=== PATIENT | female | born 1980 | race Caucasian/White ===

== ENCOUNTER 2016-07-14 23:59 | Emergency (ER) | payer OTHER ==
--- NOTE | 2016-07-15 03:35 | ED NURSING NOTES ---
Clinical Report - Nurses [facility] [address] [place] [place] [address] 07/15/2016 0:02 Patient: CLAUDIA GREENFIELD TRIAGE Triage time 0017 AM. Acuity: LEVEL 3. Chief Complaint: NAUSEA and VOMITING. Alert. No acute distress. SEPSIS SCREEN: Sepsis Screen. Negative (no infection suspected/documented). ROSA COMA SCORE: [place] Coma Scale: 15- eyes open spontaneously (4); best verbal response- oriented x 4 (5); best motor response- obeys commands (6). --00:30 Soniya Farias R.N. 00:13 07/15/16. BP: 132/93. HR: 105. RR: 16 (regular and unlabored). O2 saturation: 99% on room air. Temp: 98.3 F (oral). Pain level now: 02/20. --00:30 Soniya Farias R.N. Weight: 51.7 kg stated. Height/Length: 66 inches Per Patient. BMI: 18.4. --00:17 Soniya Farias R.N. Medications Zofran Oral. --00:16 Soniya Farias R.N. Gabapentin Oral. --00:18 Soniya Farias R.N. Tramadol HCL Oral. --00:19 Soniya Farias R.N. Promethazine HCl Rectal. --00:54 Soniya Farias R.N. Lexapro Oral. --00:55 Soniya Farias R.N. Glucosamine Oral. --00:55 Soniya Farias R.N. Vitamin D Oral. --00:56 Soniya Farias R.N. Digestive Enzyme Oral. --00:56 Soniya Farias R.N. Medication/allergy information source: the patient. --00:30 Soniya Farias R.N. Allergies Vicodin. --00:19 Soniya Farias R.N. morphine. --00:19 Soniya Farias R.N. Ambien. --00:20 Soniya Farias R.N. anything with triptin. --00:20 Soniya Farias R.N. History Primary physician (Dr. Eason- will be switching to [facility]). ( Pt has a hx irrectratable vomiting, this episode started yesterday and has gotten worst tonight with abdominal pain, back pain left (thinks might have a UTI). Has vomited approximately 8 times today, parks like color as per patient. Also has a migrane). This started last night. Relates location as in the left side of the back, right and left pelvic area, pelvic area and suprapubic area. Notes pain level as 10/10 on arrival. Provoking / relieving factors: (heating). The patient has had fever, nausea, vomiting and abdominal pain and pain. She has had nausea, vomiting, constipation, back pain and pelvic pain. Reports muscle aches. No diarrhea, constipation, fever, diarrhea or chest pain. No bloody stools or vaginal bleeding or discharge. Last oral intake by patient was dinner (5 minutes (liquid)8 PM). Treatment STUDENT ADVISOR: (zofran, trazadone). PAST MEDICAL HX: Immunizations: up-to-date and (no flu). SOCIAL HX: Light tobacco smoker- less than 1/2 a pack per day. History of drug use: marijuana. Recently used drugs today. No alcohol use. No recent travel. No infectious disease exposure. ABUSE ASSESSMENT: No report of abuse. SELF HARM ASSESSMENT: A self harm assessment was performed. The patient answered "no" to the question "Do you have thoughts of harming or killing yourself?" and "Have you recently had thoughts about harming or killing others?". FALL RISK ASSESSMENT: Fall risk assessment completed. No fall risk identified. NUTRITIONAL RISK ASSESSMENT: The nutritional risk assessment revealed no deficiencies. FUNCTIONAL ASSESSMENT: Functional assessment: no impairments noted. LEARNING NEEDS ASSESSMENT: The learning needs assessment revealed no barriers. SKIN INTEGRITY ASSESSMENT: Skin integrity risk assessment completed. No skin integrity risk identified. --00:30 Soniya Farias R.N. PROBLEMS: Gastroparesis. Irrectratable vomiting. Endometriosis. --00:16 Soniya Farias R.N. Pelvic floor dysfunction . --00:26 Soniya Farias R.N. Raynaud's disease. Fibromyalgia. --00:44 Soniya Farias R.N. Seizure. --01:10 Soniya Farias R.N. ADDITIONAL SURGERIES: Anal rectal. Hysterectomy. Laparoscopy. --00:16 Soniya Farias R.N. Interventions ID band on patient. --00:30 Soniya Farias R.N. PHYSICAL ASSESSMENT Ambulatory to room. GENERAL / NEURO / PSYCH: Alert. Oriented X 4. Appears in no acute distress. Appears in pain. HEENT: Mucous membranes are pink. RESPIRATORY: Respirations not labored. Breath sounds within normal limits. CVS: Capillary refill less than 2 seconds. GI / : Abdomen soft and nontender. Bowel sounds within normal limits. SKIN: Skin is pale. Skin is warm and dry. --00:56 Soniya Farias R.N. NURSING PROGRESS NOTES 00:37 07/15/2016 Site #1 started via IV in the left antecubital space with an 20g angiocath; one attempt. Blood drawn: rainbow set. Labeled in the presence of the patient and sent to the lab. Saline lock flushed. --00:42 Soniya Farias R.N. The initial plan of care for this patient has been created This plan of care was discussed with the patient. Patient gowned. Warming measures: blanket applied. Reassurance given. Two patient identifiers checked. Call light placed in reach. Side rails up x 1. Bed placed in lowest position. Brakes of bed on. --00:42 Soniya Farias R.N. 01:02 07/15/2016 Started bag #1 1000 mL IV Fluids IV NS (Saline); at 1000 mL/hr over 1 hour(s) via site #1 via IV pump. Allergies verified and confirmed 5 rights. IV patency established. IV site checked: no pain, redness, or swelling. IV flushed thoroughly pre- and post-medication administration. Completed per protocol. --01:02 Soniya Farias R.N. 01:06 07/15/2016 PHENERGAN (Promethazine HCl) IVP 12.5 mg given over 1 minute(s) via site #1. Allergies verified and confirmed 5 rights. IV patency established. IV site checked: no pain, redness, or swelling. IV flushed thoroughly pre- and post-medication administration. IVP given by RN. --01: Soniya Farias R.N. 01:08 07/15/2016 Benadryl (DiphenhydrAMINE HCl) IVP 12.5 mg given over 30 second(s) via site #1. Allergies verified, confirmed 5 rights and sedative warning given to the patient and patient's procurement specialist. IV patency established. IV site checked: no pain, redness, or swelling. IV flushed thoroughly pre- and post-medication administration. IVP given by RN. --01: Soniya Farias R.N. 01:07/15/2016 HALDOL (Haloperidol Lactate) IVP 2 mg given over 30 second(s) via site #1. Allergies verified, confirmed 5 rights and sedative warning given to the patient and patient's procurement specialist. IV patency established. IV site checked: no pain, redness, or swelling. IV flushed thoroughly pre- and post-medication administration. IVP given by RN. --01: Soniya Farias R.N. Pulse oximeter placed on patient. The patient is calm. Overall patient status is the same- she states feels the same. ( IV fluids infusing, meds given as ordered, pt aware of the need of an UA. Geography Professor at bedside.). GI / : The patient reports nausea. The patient reports abdominal pain. Denies diarrhea or vomiting. Two patient identifiers checked. Call light placed in reach. Bed placed in lowest position. Brakes of bed on. --01:13 Soniya Farias R.N. 01:12 07/15/16. HR: 88. O2 saturation: 100% on room air. Pain level now: 12/21. --01:13 Soniya Farias R.N. Care transferred and report given (BISI Levi). --:17 Soniya Farias R.N. 01:37. The patient is sleeping. SKIN: Skin color within normal limits. --01:47 Gurmeet France R.N. 01:53 Patient assisted to restroom by procurement specialist. --01:53 Gurmeet France R.N. Checked patient name, birthdate, medical record number and visit number: patient confirmed. Clean catch urine collected with return of yellow-colored cloudy urine; sample sent to lab for urinalysis. Specimen labeled in the presence of the patient. --02:00 Dwaine Montano 02:55 07/15/2016 Started 2 gm of Rocephin (CefTRIAXone Sodium) IVPB in bag #1 50 mL; at 150 mL/hr over 20 minute(s) via site #1 via IV pump. Allergies verified and confirmed 5 rights. IV patency established. IV site checked: no pain, redness, or swelling. IV flushed thoroughly pre- and post-medication administration. --02:57 Gurmeet France R.N. 03:16 07/15/2016 Rocephin IVPB Discontinued: bag #1 infused. Total amount infused: 50 mL. IV patency established. IV site checked: no pain, redness, or swelling. IV flushed thoroughly. --03:18 Gurmeet France R.N. 03:30. The patient is calm and resting quietly. Overall patient status is improved- she states feels better. SKIN: Skin is warm and dry. Skin color within normal limits. --03:33 Gurmeet France R.N. DISPOSITION / DISCHARGE 02:02 07/15/2016 IV Fluids IV NS Bag Change: bag #1 infused. Total amount infused: 1000. STARTED bag #2 at 250 mL/hr via IV pump. IV patency established. IV site checked: no pain, redness, or swelling. IV flushed thoroughly. --03:23 Gurmeet France R.N. 03:19 07/15/2016 IV Fluids IV NS Discontinued: bag #2 STOPPED upon discharge. Total amount infused: 400 mL. IV patency established. IV site checked: no pain, redness, or swelling. IV flushed thoroughly. --03:23 Gurmeet France R.N. 03:23 07/15/2016 Site #1 removed upon discharge. Catheter intact. Bandage applied. --03:32 Gurmeet France R.N. Departure time: 03:32. Condition at departure: stable. ( Dr. Khan notified of patient BP prior to discharge). No learning barriers present. Discharge instructions provided and reviewed with procurement specialist and the patient. Patient and procurement specialist verbalized understanding. Written instructions provided in Divehi. The patient was discharged home and accompanied by procurement specialist. She left the Emergency Department ambulatory and via private vehicle. Geography Professor driving. FALL RISK ASSESSMENT: Fall risk assessment completed. No fall risk identified. --03:33 Gurmeet France R.N. 03:18 07/15/16. BP: 88/56. HR: 82. RR: 16. O2 saturation: 98% on room air. Pain level now: 0/10. --03:33 Gurmeet France R.N. 03:32. Reviewed medication(s) side effects, precautions, dosing and course information. Prescription(s) given to the patient. --03:33 Gurmeet France R.N. Locked/Released at 07/15/2016 4:11 by Gurmeet France R.N.
--- NOTE | 2016-07-15 03:35 | ED ORDER SUMMARY ---
..... Patient: CLAUDIA GREENFIELD OrderSheet [facility] VisitID: [id number] [address] [place] [address] 36y, F Registration Date/Time: 07/15/2016 ORDER SHEET Weight: 51.7 kg (stated) Allergies: Vicodin, morphine, Ambien, anything with triptin GENERAL ORDERS: CBC w Diff Urgent (00:57 07/15/2016 Josue CHAVEZ) (Ack 0:58 CHategekimana) (1:00 EHassan R.N.) CMP Urgent (00:57 07/15/2016 Josue CHAVEZ) (Ack 0:58 CHategekimana) (1:00 EHassan R.N.) UA-Culture if indicated Urgent (00:57 07/15/2016 Josue CHAVEZ) (Ack 0:58 CHategekimana) (1:00 EHassan R.N.) Amylase Urgent (00:57 07/15/2016 Josue CHAVEZ) (Ack 0:59 CHategekimana) (1:00 EHassan R.N.) Lipase Urgent (00:57 07/15/2016 Josue CHAVEZ) (Ack 0:59 CHategekimana) (1:00 EHassan R.N.) Urine Drug Screen Urgent (00:57 07/15/2016 Josue CHAVEZ) (Ack 0:59 CHategekimana) (1:00 EHassan R.N.) MEDICATION ORDERS: Phenergan IV 12.5 mg (NOW) (00:57 07/15/2016 Josue CHAVEZ) (1:08 EHassan R.N.) IV FLUIDS: IV NS : initial bolus 1000 mL (1000 mL/hr), then 250 mL/hr for 4h (NOW); Routine (00:07/15/2016 Josue CHAVEZ) (1:02 EHassan R.N.) Haldol IV 2 mg (NOW) (00:57 07/15/2016 Josue CHAVEZ) (1:09 EHassan R.N.) Benadryl IV 12.5 mg (NOW) (00:57 07/15/2016 Josue CHAVEZ) (1:08 Serena R.N.) Rocephin IV 2 gm/50mL (NOW) (02:49 07/15/2016 Josue CHAVEZ) (Ack 2:51 Esther Tran.N.) (2:57 Esther Tran.Aliyah.) ORDER SHEET NOTES: [Electronically signed by Gurmeet France R.N. (04:11 07/15/2016)] [Electronically signed by Juan Francisco Khan MD (00:17 07/18/2016)] [Electronically locked/signed by Gurmeet France R.N. (04:11 07/15/2016)]
--- NOTE | 2016-07-15 03:35 | ED CLINICAL REPORT ---
Clinical Report - Physicians/Mid Levels [facility] [address] [place] [place] [address] 07/15/2016 0:02 [id number] Time Seen: 00:44 Jul 15 2016. Arrived- By private vehicle. Historian- patient. CPT: ER phys charges level 4 (#[id number]). HISTORY OF PRESENT ILLNESS Chief Complaint: VOMITING. NAUSEA. 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 The patient has had nausea, vomiting and abdominal pain. No diarrhea, history of possible bad food exposure or known contact with a sick individual. Has not recently been camping or on antibiotics. The illness is described as moderate. Similar symptoms previously: Several times, as bad. Diagnosis: (cyclic vomiting). Recent medical care: Not recently seen/assessed. REVIEW OF SYSTEMS No fever, difficulty with urination, dark urine, headache or dizziness. No sore throat, cough, chest pain, difficulty breathing or skin rash. No jaundice. Denies current . All systems otherwise negative, except as recorded above. PAST HISTORY Gastroparesis. Cyclical vomiting. Has had multiple upper and lower GI studies and is now connected with the . manages with meds at home most of the time and occasionally goes to the ER Endometriosis. Pelvic floor dysfunction . Anal rectal. Hysterectomy. Laparoscopy. Medications: Tramadol HCL Oral. Gabapentin Oral. Zofran Oral. Allergies: Ambien. anything with triptin. morphine. Vicodin. SOCIAL HISTORY Light tobacco smoker (cigarette)- less than 1/2 a pack per day. History of drug use: marijuana. Recently moved back here from [place]. Goes to [employer] but is transferring to clinic. ADDITIONAL NOTES The nursing notes have been reviewed. PHYSICAL EXAM Vital Signs: 07/15/2016 00:13 BP: 132/93. HR: 105. RR: 16. O2 saturation: 99%. Temp: 98.3 F. Pain level now: 10/10. Appearance: Alert. Anxious. Patient in mild distress. Eyes: Pupils equal, round and reactive to light. Eyes normal inspection. ENT: Ears normal. Nose normal. Dry mucous membranes present. Pharynx normal. Neck: Normal inspection. Neck supple. CVS: Tachycardia. Heart sounds normal. Pulses normal. Respiratory: No respiratory distress. Breath sounds normal. Abdomen: Soft and nontender. Back: Normal inspection. Skin: Skin warm. Normal skin color. No rash. Extremities: Extremities exhibit normal ROM. No lower extremity edema. Neuro: Oriented X 3. No motor deficit. No sensory deficit. Reflexes normal. LABS, X-RAYS, AND EKG Laboratory Tests: UA-Culture if indicated: (RADHA: 07/15/2016 01:55) ( [facility] 02[facility]08) Final results Test Result Flag Units (Reference) URINE COLOR YELLOW URINE APPEARANCE CLEAR URINE GLUCOSE NEGATIVE (NEGATIVE) URINE BILIRUBIN NEGATIVE (NEGATIVE) URINE KETONE NEGATIVE (NEGATIVE) URINE SPECIFIC GRAVITY 1.010 (1.010-1.030) URINE PH 7.0 (5.0-8.0) URINE PROTEIN NEGATIVE (NEGATIVE) URINE UROBILINOGEN 0.2 EU/dL (0.2-1.0) URINE NITRITE POSITIVE (NEGATIVE) URINE BLOOD NEGATIVE (NEGATIVE) URINE LEUK ESTERASE NEGATIVE (NEGATIVE) URINE RBC 0-1 rbc/hpf (0-1) URINE WBC 0-1 wbc/hpf (0-1) URINE EPITHELIAL CELLS 0-1 EPI/hpf (0-5) URINE BACTERIA MANY (4+) (NONE SEEN) URINE COMMENT CULTURE INDICATED URINE CULTURES ARE SET-UP BASED ON THE FOLLOWING CRITERIA:POSITIVE NITRITEPOSITIVE LEUKOCYTE ESTERASEGREATER THAN 10 WHITE BLOOD CELLSMODERATE (2+) OR GREATER BACTERIA CBC w Diff: (RADHA: 07/15/2016 00:40) ( [facility] 07/15/2016 01:04) Final results Test Result Flag Units (Reference) WHITE BLOOD COUNT 13.7 H K/uL (4.5-11.5) RED BLOOD COUNT 4.55 M/uL (4.00-5.20) HEMOGLOBIN 13.7 gm/dL (12.0-16.0) HEMATOCRIT 39.9 % (36.0-46.0) MEAN CELL VOLUME 88 fL (80-100) MEAN CORPUSCULAR HGB 30 pg (26-34) MEAN CORPUSCULAR HGB CONC 34 g/dL (31-37) RED CELL DISTRIBUTION WIDTH 12.6 % (11.6-14.8) PLATELET COUNT 256 K/uL (150-400) NEUTROPHIL % 73.8 % (50-75) LYMPH % 20.6 L % (25-40) MONO % 5.0 % (3-14) EOSINOPHIL % 0.4 % (0-4) BASOPHIL % 0.2 % (0-2) Urine Drug Screen: (RADHA: 07/15/2016 01:55) ( MsgRcvd 07/15/2016 02:14) Final results Test Result Flag Units (Reference) AMPHETAMINE/METHAMPHETAMINE NEGATIVE (NEGATIVE) BARBITURATE NEGATIVE (NEGATIVE) BENZODIAZEPINE NEGATIVE (NEGATIVE) CANNABINOID POSITIVE H (NEGATIVE) COCAINE NEGATIVE (NEGATIVE) ECSTASY NEGATIVE (NEGATIVE) METHADONE NEGATIVE (NEGATIVE) OPIATE NEGATIVE (NEGATIVE) The urine drug screen is a qualitative screening test fordrug overdose and abuse. All screen results should beconsidered as presumptive.Drugs screened for are as follows:BenzodiazepinesCocaineAmphetamines/MetamphetaminesTHC (Tetrahydrocannabinol)OpiatesBarbituratesEcstasyMethadonePositive results are unconfirmed. For confirmation, notifythe lab for the specimen to be sent to the reference lab.All confirmations must be performed by a differentmethodology.The ingestion of natural herbal and plant productscontaining Ephedra/Ephedra metabolites can produce in urineone or more substances capable of cross reacting withamphetamine/methamphetamine immunoassays. These testsprovide a preliminary result only. A more specificalternative chemical method must be used to obtain aconfirmed analytical result. CMP: (RADHA: 07/15/2016 00:40) ( MsgRcvd 07/15/2016 01:13) Final results Test Result Flag Units (Reference) GLUCOSE 90 mg/dL (70-110) BUN 6 L mg/dL (7-18) CREATININE 0.8 mg/dL (0.6-1.3) Estimated GFR >60 mL/min Estimated GFR- >60 mL/min Note: Persistent reduction over 3 months in eGFR<60 mL/min/1.73 m2 defines CKD. Patients with eGFR values>=60 mL/min/1.73 m2 may also have CKD if evidence ofpersistent proteinuria. Additional information may be foundat www.kidney.org. SODIUM 140 mmol/L (136-145) POTASSIUM 3.6 mmol/L (3.5-5.1) CHLORIDE 104 mmol/L (98-107) CARBON DIOXIDE 28 mmol/L (21-32) CALCIUM 9.0 mg/dL (8.5-10.1) TOTAL PROTEIN 7.5 g/dL (6.4-8.2) ALBUMIN 4.2 g/dL (3.3-5.0) BILIRUBIN, TOTAL 0.4 mg/dL (0.0-1.0) ALKALINE PHOSPHATASE 62 U/L (46-116) AST (SGOT) 15 U/L (15-37) ALT (SGPT) 20 U/L (12-78) LIPASE 90 U/L (73-393) AMYLASE 65 U/L (25-115) . PROGRESS AND PROCEDURES Course of Care: IV NS Phenergan 12.5 mg IV Haldol 2 mg IV Benadryl 12.5 mg IV Rocephin 2g IV Patient is stable. Physical exam findings are improved. Symptoms much better. Patient/family counseled. Disposition: Discharged. Condition: stable and improved. CLINICAL IMPRESSION Cyclic vomiting UTI. INSTRUCTIONS Take clear liquids only (frequent sips) for the next 24 hours until better. Advance diet as tolerated. Warnings: Further evaluation is necessary. SEDATIVE MEDICATION: You were given sedative medication during your visit. Do not drive or operate dangerous machinery. GENERAL WARNINGS: Return or contact your physician immediately if your condition worsens or changes unexpectedly, if not improving as expected, or if other problems arise. Your Current Medications: CONTINUE TAKING THE FOLLOWING MEDICATIONS: Digestive Enzyme Oral. Gabapentin Oral. Glucosamine Oral. Lexapro Oral. Promethazine HCl Rectal. Tramadol HCL Oral. Vitamin D Oral. Zofran Oral. Prescription Medications: Septra DS: take 1 tablet orally every 12 hours for 3 days. No refill. Substitution is not permissible. Follow-up: Follow up with your doctor in three days if not better. Call for an appointment. Understanding of the discharge instructions verbalized by patient and family. Discharge instructions reviewed with and understanding was verbalized by cook school cafeteria. (Electronically signed by Juan Francisco Khan MD 07/18/2016 0:17) Addenda for CLAUDIA GREENFIELD VisitID: [id number] Date: 07/15/2016 07/17/2016 17:33 1725 contacted pt, re: urine culture, rx for Septra DS 1 po bid x4 days #8, per ELI Avery, called to [facility] on [address] (Electronically signed by Aria Tripathi R.N. - 07/17/2016 17:33)
--- NOTE | 2016-07-15 03:35 | ED ORDER SUMMARY ---
..... Patient: CLAUDIA GREENFIELD OrderSheet [facility] VisitID: [id number] [address] [place] [address] 36y, F Registration Date/Time: 07/15/2016 ORDER SHEET Weight: 51.7 kg (stated) Allergies: Vicodin, morphine, Ambien, anything with triptin GENERAL ORDERS: CBC w Diff Urgent (00:57 07/15/2016 Josue CHAVEZ) (Ack 0:58 CHategekimana) (1:00 EHassan R.N.) CMP Urgent (00:57 07/15/2016 Josue CHAVEZ) (Ack 0:58 CHategekimana) (1:00 EHassan R.N.) UA-Culture if indicated Urgent (00:57 07/15/2016 Josue CHAVEZ) (Ack 0:58 CHategekimana) (1:00 EHassan R.N.) Amylase Urgent (00:57 07/15/2016 Josue CHAVEZ) (Ack 0:59 CHategekimana) (1:00 EHassan R.N.) Lipase Urgent (00:57 07/15/2016 Josue CHAVEZ) (Ack 0:59 CHategekimana) (1:00 EHassan R.N.) Urine Drug Screen Urgent (00:57 07/15/2016 Josue CHAVEZ) (Ack 0:59 CHategekimana) (1:00 EHassan R.N.) MEDICATION ORDERS: Phenergan IV 12.5 mg (NOW) (00:57 07/15/2016 Josue CHAVEZ) (1:08 EHassan R.N.) IV FLUIDS: IV NS : initial bolus 1000 mL (1000 mL/hr), then 250 mL/hr for 4h (NOW); Routine (00:07/15/2016 Josue CHAVEZ) (1:02 EHassan R.N.) Haldol IV 2 mg (NOW) (00:57 07/15/2016 Josue CHAVEZ) (1:09 EHassan R.N.) Benadryl IV 12.5 mg (NOW) (00:57 07/15/2016 Josue CHAVEZ) (1:08 Serena R.N.) Rocephin IV 2 gm/50mL (NOW) (02:49 07/15/2016 Josue CHAVEZ) (Ack 2:51 Esther Tran.N.) (2:57 Esther Tran.Aliyah.) ORDER SHEET NOTES: [Electronically signed by Gurmeet France R.N. (04:11 07/15/2016)] [Electronically signed by Juan Francisco Khan MD (00:17 07/18/2016)] [Electronically locked/signed by Gurmeet France R.N. (04:11 07/15/2016)]
--- NOTE | 2016-07-15 03:35 | ED CLINICAL REPORT ---
Clinical Report - Physicians/Mid Levels [facility] [address] [place] [address] 07/15/2016 0:02 [id number] Time Seen: 00:44 Jul 15 2016. Arrived- By private vehicle. Historian- patient. CPT: ER phys charges level 4 (#[id number]). HISTORY OF PRESENT ILLNESS Chief Complaint: VOMITING. NAUSEA. 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 The patient has had nausea, vomiting and abdominal pain. No diarrhea, history of possible bad food exposure or known contact with a sick individual. Has not recently been camping or on antibiotics. The illness is described as moderate. Similar symptoms previously: Several times, as bad. Diagnosis: (cyclic vomiting). Recent medical care: Not recently seen/assessed. REVIEW OF SYSTEMS No fever, difficulty with urination, dark urine, headache or dizziness. No sore throat, cough, chest pain, difficulty breathing or skin rash. No jaundice. Denies current . All systems otherwise negative, except as recorded above. PAST HISTORY Gastroparesis. Cyclical vomiting. Has had multiple upper and lower GI studies and is now connected with the . manages with meds at home most of the time and occasionally goes to the ER Endometriosis. Pelvic floor dysfunction . Anal rectal. Hysterectomy. Laparoscopy. Medications: Tramadol HCL Oral. Gabapentin Oral. Zofran Oral. Allergies: Ambien. anything with triptin. morphine. Vicodin. SOCIAL HISTORY Light tobacco smoker (cigarette)- less than 1/2 a pack per day. History of drug use: marijuana. Recently moved back here from [place]. Goes to [facility] but is transferring to clinic. ADDITIONAL NOTES The nursing notes have been reviewed. PHYSICAL EXAM Vital Signs: 07/15/2016 00:13 BP: 132/93. HR: 105. RR: 16. O2 saturation: 99%. Temp: 98.3 F. Pain level now: 10/10. Appearance: Alert. Anxious. Patient in mild distress. Eyes: Pupils equal, round and reactive to light. Eyes normal inspection. ENT: Ears normal. Nose normal. Dry mucous membranes present. Pharynx normal. Neck: Normal inspection. Neck supple. CVS: Tachycardia. Heart sounds normal. Pulses normal. Respiratory: No respiratory distress. Breath sounds normal. Abdomen: Soft and nontender. Back: Normal inspection. Skin: Skin warm. Normal skin color. No rash. Extremities: Extremities exhibit normal ROM. No lower extremity edema. Neuro: Oriented X 3. No motor deficit. No sensory deficit. Reflexes normal. LABS, X-RAYS, AND EKG Laboratory Tests: UA-Culture if indicated: (RADHA: 07/15/2016 01:55) ( [facility] 07/15/2016 02:08) Final results Test Result Flag Units (Reference) URINE COLOR YELLOW URINE APPEARANCE CLEAR URINE GLUCOSE NEGATIVE (NEGATIVE) URINE BILIRUBIN NEGATIVE (NEGATIVE) URINE KETONE NEGATIVE (NEGATIVE) URINE SPECIFIC GRAVITY 1.010 (1.010-1.030) URINE PH 7.0 (5.0-8.0) URINE PROTEIN NEGATIVE (NEGATIVE) URINE UROBILINOGEN 0.2 EU/dL (0.2-1.0) URINE NITRITE POSITIVE (NEGATIVE) URINE BLOOD NEGATIVE (NEGATIVE) URINE LEUK ESTERASE NEGATIVE (NEGATIVE) URINE RBC 0-1 rbc/hpf (0-1) URINE WBC 0-1 wbc/hpf (0-1) URINE EPITHELIAL CELLS 0-1 EPI/hpf (0-5) URINE BACTERIA MANY (4+) (NONE SEEN) URINE COMMENT CULTURE INDICATED URINE CULTURES ARE SET-UP BASED ON THE FOLLOWING CRITERIA:POSITIVE NITRITEPOSITIVE LEUKOCYTE ESTERASEGREATER THAN 10 WHITE BLOOD CELLSMODERATE (2+) OR GREATER BACTERIA CBC w Diff: (RADHA: 07/15/2016 00:40) ( [facility] 07/15/2016 01:04) Final results Test Result Flag Units (Reference) WHITE BLOOD COUNT 13.7 H K/uL (4.5-11.5) RED BLOOD COUNT 4.55 M/uL (4.00-5.20) HEMOGLOBIN 13.7 gm/dL (12.0-16.0) HEMATOCRIT 39.9 % (36.0-46.0) MEAN CELL VOLUME 88 fL (80-100) MEAN CORPUSCULAR HGB 30 pg (26-34) MEAN CORPUSCULAR HGB CONC 34 g/dL (31-37) RED CELL DISTRIBUTION WIDTH 12.6 % (11.6-14.8) PLATELET COUNT 256 K/uL (150-400) NEUTROPHIL % 73.8 % (50-75) LYMPH % 20.6 L % (25-40) MONO % 5.0 % (3-14) EOSINOPHIL % 0.4 % (0-4) BASOPHIL % 0.2 % (0-2) Urine Drug Screen: (RADHA: 07/15/2016 01:55) ( MsgRcvd 07/15/2016 02:14) Final results Test Result Flag Units (Reference) AMPHETAMINE/METHAMPHETAMINE NEGATIVE (NEGATIVE) BARBITURATE NEGATIVE (NEGATIVE) BENZODIAZEPINE NEGATIVE (NEGATIVE) CANNABINOID POSITIVE H (NEGATIVE) COCAINE NEGATIVE (NEGATIVE) ECSTASY NEGATIVE (NEGATIVE) METHADONE NEGATIVE (NEGATIVE) OPIATE NEGATIVE (NEGATIVE) The urine drug screen is a qualitative screening test fordrug overdose and abuse. All screen results should beconsidered as presumptive.Drugs screened for are as follows:BenzodiazepinesCocaineAmphetamines/MetamphetaminesTHC (Tetrahydrocannabinol)OpiatesBarbituratesEcstasyMethadonePositive results are unconfirmed. For confirmation, notifythe lab for the specimen to be sent to the reference lab.All confirmations must be performed by a differentmethodology.The ingestion of natural herbal and plant productscontaining Ephedra/Ephedra metabolites can produce in urineone or more substances capable of cross reacting withamphetamine/methamphetamine immunoassays. These testsprovide a preliminary result only. A more specificalternative chemical method must be used to obtain aconfirmed analytical result. CMP: (RADHA: 07/15/2016 00:40) ( MsgRcvd 07/15/2016 01:13) Final results Test Result Flag Units (Reference) GLUCOSE 90 mg/dL (70-110) BUN 6 L mg/dL (7-18) CREATININE 0.8 mg/dL (0.6-1.3) Estimated GFR >60 mL/min Estimated GFR- >60 mL/min Note: Persistent reduction over 3 months in eGFR<60 mL/min/1.73 m2 defines CKD. Patients with eGFR values>=60 mL/min/1.73 m2 may also have CKD if evidence ofpersistent proteinuria. Additional information may be foundat www.kidney.org. SODIUM 140 mmol/L (136-145) POTASSIUM 3.6 mmol/L (3.5-5.1) CHLORIDE 104 mmol/L (98-107) CARBON DIOXIDE 28 mmol/L (21-32) CALCIUM 9.0 mg/dL (8.5-10.1) TOTAL PROTEIN 7.5 g/dL (6.4-8.2) ALBUMIN 4.2 g/dL (3.3-5.0) BILIRUBIN, TOTAL 0.4 mg/dL (0.0-1.0) ALKALINE PHOSPHATASE 62 U/L (46-116) AST (SGOT) 15 U/L (15-37) ALT (SGPT) 20 U/L (12-78) LIPASE 90 U/L (73-393) AMYLASE 65 U/L (25-115) . PROGRESS AND PROCEDURES Course of Care: IV NS Phenergan 12.5 mg IV Haldol 2 mg IV Benadryl 12.5 mg IV Rocephin 2g IV Patient is stable. Physical exam findings are improved. Symptoms much better. Patient/family counseled. Disposition: Discharged. Condition: stable and improved. CLINICAL IMPRESSION Cyclic vomiting UTI. INSTRUCTIONS Take clear liquids only (frequent sips) for the next 24 hours until better. Advance diet as tolerated. Warnings: Further evaluation is necessary. SEDATIVE MEDICATION: You were given sedative medication during your visit. Do not drive or operate dangerous machinery. GENERAL WARNINGS: Return or contact your physician immediately if your condition worsens or changes unexpectedly, if not improving as expected, or if other problems arise. Your Current Medications: CONTINUE TAKING THE FOLLOWING MEDICATIONS: Digestive Enzyme Oral. Gabapentin Oral. Glucosamine Oral. Lexapro Oral. Promethazine HCl Rectal. Tramadol HCL Oral. Vitamin D Oral. Zofran Oral. Prescription Medications: Septra DS: take 1 tablet orally every 12 hours for 3 days. No refill. Substitution is not permissible. Follow-up: Follow up with your doctor in three days if not better. Call for an appointment. Understanding of the discharge instructions verbalized by patient and family. Discharge instructions reviewed with and understanding was verbalized by stna. (Electronically signed by Juan Francisco Khan MD 07/18/2016 0:17) Addenda for CLAUDIA GREENFIELD VisitID: [id number] Date: 07/15/2016 07/17/2016 17:33 [id number] contacted pt, re: urine culture, rx for Septra DS 1 po bid x4 days #8, per ELI Avery, called to Joann Navarro on [address] (Electronically signed by Aria Tripathi R.N. - 07/17/2016 17:33)
--- NOTE | 2016-07-15 03:35 | ED NURSING NOTES ---
Clinical Report - Nurses [facility] [address] [place] [address] 07/15/2016 0:02 Patient: CLAUDIA GREENFIELD TRIAGE Triage time 0017 AM. Acuity: LEVEL 3. Chief Complaint: NAUSEA and VOMITING. Alert. No acute distress. SEPSIS SCREEN: Sepsis Screen. Negative (no infection suspected/documented). ROSA COMA SCORE: [place] Coma Scale: 15- eyes open spontaneously (4); best verbal response- oriented x 4 (5); best motor response- obeys commands (6). --00:30 Soniya Farias R.N. 00:13 07/15/16. BP: 132/93. HR: 105. RR: 16 (regular and unlabored). O2 saturation: 99% on room air. Temp: 98.3 F (oral). Pain level now: 02/20. --00:30 Soniya Farias R.N. Weight: 51.7 kg stated. Height/Length: 66 inches Per Patient. BMI: 18.4. --00:17 Soniya Farias R.N. Medications Zofran Oral. --00:16 Soniya Farias R.N. Gabapentin Oral. --00:18 Soniya Farias R.N. Tramadol HCL Oral. --00:19 Soniya Farias R.N. Promethazine HCl Rectal. --00:54 Soniya Farias R.N. Lexapro Oral. --00:55 Soniya Farias R.N. Glucosamine Oral. --00:55 Soniya Farias R.N. Vitamin D Oral. --00:56 Soniya Farias R.N. Digestive Enzyme Oral. --00:56 Soniya Farias R.N. Medication/allergy information source: the patient. --00:30 Soniya Farias R.N. Allergies Vicodin. --00:19 Soniya Farias R.N. morphine. --00:19 Soniya Farias R.N. Ambien. --00:20 Soniya Farias R.N. anything with triptin. --00:20 Soniya Farias R.N. History Primary physician (Dr. Eason- will be switching to [facility]). ( Pt has a hx irrectratable vomiting, this episode started yesterday and has gotten worst tonight with abdominal pain, back pain left (thinks might have a UTI). Has vomited approximately 8 times today, parks like color as per patient. Also has a migrane). This started last night. Relates location as in the left side of the back, right and left pelvic area, pelvic area and suprapubic area. Notes pain level as 10/10 on arrival. Provoking / relieving factors: (heating). The patient has had fever, nausea, vomiting and abdominal pain and pain. She has had nausea, vomiting, constipation, back pain and pelvic pain. Reports muscle aches. No diarrhea, constipation, fever, diarrhea or chest pain. No bloody stools or vaginal bleeding or discharge. Last oral intake by patient was dinner (5 minutes (liquid)8 PM). 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 PAST MEDICAL HX: Immunizations: up-to-date and (no flu). SOCIAL HX: Light tobacco smoker- less than 1/2 a pack per day. History of drug use: marijuana. Recently used drugs today. No alcohol use. No recent travel. No infectious disease exposure. ABUSE ASSESSMENT: No report of abuse. SELF HARM ASSESSMENT: A self harm assessment was performed. The patient answered "no" to the question "Do you have thoughts of harming or killing yourself?" and "Have you recently had thoughts about harming or killing others?". FALL RISK ASSESSMENT: Fall risk assessment completed. No fall risk identified. NUTRITIONAL RISK ASSESSMENT: The nutritional risk assessment revealed no deficiencies. FUNCTIONAL ASSESSMENT: Functional assessment: no impairments noted. LEARNING NEEDS ASSESSMENT: The learning needs assessment revealed no barriers. SKIN INTEGRITY ASSESSMENT: Skin integrity risk assessment completed. No skin integrity risk identified. --00:30 Soniya Farias R.N. PROBLEMS: Gastroparesis. Irrectratable vomiting. Endometriosis. --00:16 Soniya Farias R.N. Pelvic floor dysfunction . --00:26 Soniya Farias R.N. Raynaud's disease. Fibromyalgia. --00:44 Soniya Farias R.N. Seizure. --01:10 Soniya Farias R.N. ADDITIONAL SURGERIES: Anal rectal. Hysterectomy. Laparoscopy. --00:16 Soniya Farias R.N. Interventions ID band on patient. --00:30 Soniya Farias R.N. PHYSICAL ASSESSMENT Ambulatory to room. GENERAL / NEURO / PSYCH: Alert. Oriented X 4. Appears in no acute distress. Appears in pain. HEENT: Mucous membranes are pink. RESPIRATORY: Respirations not labored. Breath sounds within normal limits. CVS: Capillary refill less than 2 seconds. GI / : Abdomen soft and nontender. Bowel sounds within normal limits. SKIN: Skin is pale. Skin is warm and dry. --00:56 Soniya Farias R.N. NURSING PROGRESS NOTES 00:37 07/15/2016 Site #1 started via IV in the left antecubital space with an 20g angiocath; one attempt. Blood drawn: rainbow set. Labeled in the presence of the patient and sent to the lab. Saline lock flushed. --00:42 Soniya Farias R.N. The initial plan of care for this patient has been created This plan of care was discussed with the patient. Patient gowned. Warming measures: blanket applied. Reassurance given. Two patient identifiers checked. Call light placed in reach. Side rails up x 1. Bed placed in lowest position. Brakes of bed on. --00:42 Soniya Farias R.N. 01:02 07/15/2016 Started bag #1 1000 mL IV Fluids IV NS (Saline); at 1000 mL/hr over 1 hour(s) via site #1 via IV pump. Allergies verified and confirmed 5 rights. IV patency established. IV site checked: no pain, redness, or swelling. IV flushed thoroughly pre- and post-medication administration. Completed per protocol. --01:02 Soniya Farias R.N. 01:06 07/15/2016 PHENERGAN (Promethazine HCl) IVP 12.5 mg given over 1 minute(s) via site #1. Allergies verified and confirmed 5 rights. IV patency established. IV site checked: no pain, redness, or swelling. IV flushed thoroughly pre- and post-medication administration. IVP given by RN. --01: Soniya Farias R.N. 01:08 07/15/2016 Benadryl (DiphenhydrAMINE HCl) IVP 12.5 mg given over 30 second(s) via site #1. Allergies verified, confirmed 5 rights and sedative warning given to the patient and patient's grinder setup operator. IV patency established. IV site checked: no pain, redness, or swelling. IV flushed thoroughly pre- and post-medication administration. IVP given by RN. --01: Soniya Farias R.N. 01:07/15/2016 HALDOL (Haloperidol Lactate) IVP 2 mg given over 30 second(s) via site #1. Allergies verified, confirmed 5 rights and sedative warning given to the patient and patient's grinder setup operator. IV patency established. IV site checked: no pain, redness, or swelling. IV flushed thoroughly pre- and post-medication administration. IVP given by RN. --01: Soniya Farias R.N. Pulse oximeter placed on patient. The patient is calm. Overall patient status is the same- she states feels the same. ( IV fluids infusing, meds given as ordered, pt aware of the need of an UA. Straddle Bug Operator at bedside.). GI / : The patient reports nausea. The patient reports abdominal pain. Denies diarrhea or vomiting. Two patient identifiers checked. Call light placed in reach. Bed placed in lowest position. Brakes of bed on. --01:13 Soniya Farias R.N. 01:12 07/15/16. HR: 88. O2 saturation: 100% on room air. Pain level now: 12/21. --01:13 Soniya Farias R.N. Care transferred and report given (BISI Levi). --:17 Soniya Farias R.N. 01:37. The patient is sleeping. SKIN: Skin color within normal limits. --01:47 Gurmeet France R.N. 01:53 Patient assisted to restroom by grinder setup operator. --01:53 Gurmeet France R.N. Checked patient name, birthdate, medical record number and visit number: patient confirmed. Clean catch urine collected with return of yellow-colored cloudy urine; sample sent to lab for urinalysis. Specimen labeled in the presence of the patient. --02:00 Dwaine Montano 02:55 07/15/2016 Started 2 gm of Rocephin (CefTRIAXone Sodium) IVPB in bag #1 50 mL; at 150 mL/hr over 20 minute(s) via site #1 via IV pump. Allergies verified and confirmed 5 rights. IV patency established. IV site checked: no pain, redness, or swelling. IV flushed thoroughly pre- and post-medication administration. --02:57 Gurmeet France R.N. 03:16 07/15/2016 Rocephin IVPB Discontinued: bag #1 infused. Total amount infused: 50 mL. IV patency established. IV site checked: no pain, redness, or swelling. IV flushed thoroughly. --03:18 Gurmeet France R.N. 03:30. The patient is calm and resting quietly. Overall patient status is improved- she states feels better. SKIN: Skin is warm and dry. Skin color within normal limits. --03:33 Gurmeet France R.N. DISPOSITION / DISCHARGE 02:02 07/15/2016 IV Fluids IV NS Bag Change: bag #1 infused. Total amount infused: 1000. STARTED bag #2 at 250 mL/hr via IV pump. IV patency established. IV site checked: no pain, redness, or swelling. IV flushed thoroughly. --03:23 Gurmeet France R.N. 03:19 07/15/2016 IV Fluids IV NS Discontinued: bag #2 STOPPED upon discharge. Total amount infused: 400 mL. IV patency established. IV site checked: no pain, redness, or swelling. IV flushed thoroughly. --03:23 Gurmeet France R.N. 03:23 07/15/2016 Site #1 removed upon discharge. Catheter intact. Bandage applied. --03:32 Gurmeet France R.N. Departure time: 03:32. Condition at departure: stable. ( Dr. Khan notified of patient BP prior to discharge). No learning barriers present. Discharge instructions provided and reviewed with grinder setup operator and the patient. Patient and grinder setup operator verbalized understanding. Written instructions provided in Hungarian. The patient was discharged home and accompanied by grinder setup operator. She left the Emergency Department ambulatory and via private vehicle. Straddle Bug Operator driving. FALL RISK ASSESSMENT: Fall risk assessment completed. No fall risk identified. --03:33 Gurmeet France R.N. 03:18 07/15/16. BP: 88/56. HR: 82. RR: 16. O2 saturation: 98% on room air. Pain level now: 0/10. --03:33 Gurmeet France R.N. 03:32. Reviewed medication(s) side effects, precautions, dosing and course information. Prescription(s) given to the patient. --03:33 Gurmeet France R.N. Locked/Released at 07/15/2016 4:11 by Gurmeet France R.N.
--- NOTE | 2016-07-18 00:17 | ED MAR SUMMARY ---
..... Medication Administration Record [facility] [address] [place] [address] Patient: CLAUDIA GREENFIELD Visit ID: [id number] 36y, F Weight: 51.7 kg Height/Length: 66 in BMI: 18.4 ALLERGIES: anything with triptin, Ambien, morphine, Vicodin Start 01:02 07/15/2016 Soniya Farias R.N., Stop 03:19 07/15/2016 Gurmeet France R.N. Medication Administered: IV NS (SALINE), Dose: IV Fluids over 1 hour(s), Rate: 1000 mL/hr, Dispensed: 1000 mL bag, Site: #1 left AC. Medication Ordered: IV NS : initial bolus 1000 mL (1000 mL/hr), then 250 mL/hr for 4h (NOW); Routine. Given 01:06 07/15/2016 Soniya Farias R.N. Medication Administered: PHENERGAN [IVP] (PROMETHAZINE HCL), Dose: 12.5 mg IVP over 1 minute(s), Site: #1 left AC. Medication Ordered: Phenergan IV 12.5 mg (NOW). Given 01:08 07/15/2016 Soniya Farias R.N. Medication Administered: BENADRYL [IVP] (DIPHENHYDRAMINE HCL), Dose: 12.5 mg IVP over 30 second(s), Site: #1 left AC. Medication Ordered: Benadryl IV 12.5 mg (NOW). Given 01:07/15/2016 Soniya Farias R.N. Medication Administered: HALDOL [IVP] (HALOPERIDOL LACTATE), Dose: 2 mg IVP over 30 second(s), Site: #1 left AC. Medication Ordered: Haldol IV 2 mg (NOW). Start 02:55 07/15/2016 Gurmeet France R.N., Stop 03:16 07/15/2016 Gurmeet France R.N. Medication Administered: ROCEPHIN [IVPB] (CEFTRIAXONE SODIUM), Dose: 2 gm IVPB over 20 minute(s), Rate: 150 mL/hr, Dispensed: 50 mL bag, Site: #1 left AC. Medication Ordered: Rocephin IV 2 gm/50mL (NOW).
--- NOTE | 2016-07-18 00:17 | ED DISCHARGE INSTRUCTIONS ---
Patient: CLAUDIA GREENFIELD General Instructions [facility] VisitID: [id number] [place] [place] [address] 36y, F Registration Date/Time: 07/15/2016 Cyclic vomiting UTI. INSTRUCTIONS Take clear liquids only (frequent sips) for the next 24 hours until better. Advance diet as tolerated. Warnings: Further evaluation is necessary. SEDATIVE MEDICATION: You were given sedative medication during your visit. Do not drive or operate dangerous machinery. GENERAL WARNINGS: Return or contact your physician immediately if your condition worsens or changes unexpectedly, if not improving as expected, or if other problems arise. Your Current Medications: CONTINUE TAKING THE FOLLOWING MEDICATIONS: Digestive Enzyme Oral. Gabapentin Oral. Glucosamine Oral. Lexapro Oral. Promethazine HCl Rectal. Tramadol HCL Oral. Vitamin D Oral. Zofran Oral. Prescription Medications: Septra DS: take 1 tablet orally every 12 hours for 3 days. No refill. Substitution is not permissible. Follow-up: Follow up with your doctor in three days if not better. Call for an appointment. Understanding of the discharge instructions verbalized by patient and family. Discharge instructions reviewed with and understanding was verbalized by high school director. ADDITIONAL INFORMATION Clear Liquid Diet Clear liquids are any liquid that you can see through as well as those that are very easy to digest. This is used while the body is recovering from irritation or infection of the stomach or intestinal tract. It may also be used before special procedures or surgery. This diet is to be used no more than three days. You may include the following items. Adults Adults should drink a total of 23 quarts of liquid per day. It may be easier to drink small frequent servings rather than a few large ones. Liquids can include: Fruit juices.Strained orange juice or lemonade (no pulp), apple, grape and cranberry juice, clear fruit drinks, sports drinks Beverages.Sport drinks, sodas, mineral water (plain or flavored), tea, black coffee, liquid gelatin (add twice the recommended amount of water) Soups.Clear broth, consomm, bouillon Desserts.Plain gelatin, popsicles, fruit juice bars Children Over 2 years old The following liquids are acceptable for children over age 2: Fruit juices.Strained orange juice or lemonade (no pulp), apple, grape and cranberry juice, clear fruit drinks Beverages. Sports drinks, sodas, mineral water (plain or flavored), tea, liquid gelatin (add twice the recommended amount of water) Soups. Clear broth, consomm, bouillon Desserts. Plain gelatin, popsicles, fruit juice bars Children under 2 years old Oral rehydration fluids such are available at drug stores and most grocery stores without a prescription. You have been given the following additional information: Diet, Clear Liquid (Electronically signed by Juan Francisco Khan MD 07/18/2016 0:17)
--- NOTE | 2016-07-18 00:17 | ED MED RECONCILIATION SUMMARY ---
Patient: CLAUDIA GREENFIELD Medication Reconciliation Report [facility] VisitID: [id number] [address] [place] [address] 36y, F Registration Date/Time: 07/15/2016 Weight: 51.7 kg Height/Length: 66 in. BMI: 18.4 ALLERGIES: Ambien, anything with triptin, morphine, Vicodin The patient's Home Medications are listed below: CONTINUE TAKING THE FOLLOWING MEDICATIONS: Digestive Enzyme Oral Gabapentin Oral Glucosamine Oral Lexapro Oral Promethazine HCl Rectal Tramadol HCL Oral Vitamin D Oral Zofran Oral The source(s) of the original Home Medication information: patient The following Medications were given to the patient in the Emergency Department: IV NS IV Fluids bolus 0, then 1000 mL/hr, administered: 07/15/2016 1:02:00 AM PHENERGAN [IVP] IVP 12.5 mg, administered: 07/15/2016 1:06:00 AM Benadryl [IVP] IVP 12.5 mg, administered: 07/15/2016 1:08:00 AM HALDOL [IVP] IVP 2 mg, administered: 07/15/2016 1:09:00 AM Rocephin [IVPB] IVPB bolus 0, then 2 gm 150 mL/hr, administered: 07/15/2016 2:55:00 AM The following Medications were prescribed to the patient: Septra DS: take 1 tablet orally every 12 hours for 3 days. No refill. Substitution is not permissible. -- Juan Francisco Khan MD
--- NOTE | 2016-07-18 00:17 | ED DISCHARGE INSTRUCTIONS ---
Patient: CLAUDIA GREENFIELD General Instructions [facility] VisitID: [id number] [place] [address] 36y, F Registration Date/Time: 07/15/2016 Cyclic vomiting UTI. INSTRUCTIONS Take clear liquids only (frequent sips) for the next 24 hours until better. Advance diet as tolerated. Warnings: Further evaluation is necessary. SEDATIVE MEDICATION: You were given sedative medication during your visit. Do not drive or operate dangerous machinery. GENERAL WARNINGS: Return or contact your physician immediately if your condition worsens or changes unexpectedly, if not improving as expected, or if other problems arise. Your Current Medications: CONTINUE TAKING THE FOLLOWING MEDICATIONS: Digestive Enzyme Oral. Gabapentin Oral. Glucosamine Oral. Lexapro Oral. Promethazine HCl Rectal. Tramadol HCL Oral. Vitamin D Oral. Zofran Oral. Prescription Medications: Septra DS: take 1 tablet orally every 12 hours for 3 days. No refill. Substitution is not permissible. Follow-up: Follow up with your doctor in three days if not better. Call for an appointment. Understanding of the discharge instructions verbalized by patient and family. Discharge instructions reviewed with and understanding was verbalized by glass silverer. ADDITIONAL INFORMATION Clear Liquid Diet Clear liquids are any liquid that you can see through as well as those that are very easy to digest. This is used while the body is recovering from irritation or infection of the stomach or intestinal tract. It may also be used before special procedures or surgery. This diet is to be used no more than three days. You may include the following items. Adults Adults should drink a total of 23 quarts of liquid per day. It may be easier to drink small frequent servings rather than a few large ones. Liquids can include: Fruit juices.Strained orange juice or lemonade (no pulp), apple, grape and cranberry juice, clear fruit drinks, sports drinks Beverages.Sport drinks, sodas, mineral water (plain or flavored), tea, black coffee, liquid gelatin (add twice the recommended amount of water) Soups.Clear broth, consomm, bouillon Desserts.Plain gelatin, popsicles, fruit juice bars Children Over 2 years old The following liquids are acceptable for children over age 2: Fruit juices.Strained orange juice or lemonade (no pulp), apple, grape and cranberry juice, clear fruit drinks Beverages. Sports drinks, sodas, mineral water (plain or flavored), tea, liquid gelatin (add twice the recommended amount of water) Soups. Clear broth, consomm, bouillon Desserts. Plain gelatin, popsicles, fruit juice bars Children under 2 years old Oral rehydration fluids such are available at drug stores and most grocery stores without a prescription. You have been given the following additional information: Diet, Clear Liquid (Electronically signed by Juan Francisco Khan MD 07/18/2016 0:17)
--- NOTE | 2016-07-18 00:17 | ED MED RECONCILIATION SUMMARY ---
Patient: CLAUDIA GREENFIELD Medication Reconciliation Report [facility] VisitID: [id number] [address] [place] [address] 36y, F Registration Date/Time: 07/15/2016 Weight: 51.7 kg Height/Length: 66 in. BMI: 18.4 ALLERGIES: Ambien, anything with triptin, morphine, Vicodin The patient's Home Medications are listed below: CONTINUE TAKING THE FOLLOWING MEDICATIONS: Digestive Enzyme Oral Gabapentin Oral Glucosamine Oral Lexapro Oral Promethazine HCl Rectal Tramadol HCL Oral Vitamin D Oral Zofran Oral The source(s) of the original Home Medication information: patient The following Medications were given to the patient in the Emergency Department: IV NS IV Fluids bolus 0, then 1000 mL/hr, administered: 07/15/2016 1:02:00 AM PHENERGAN [IVP] IVP 12.5 mg, administered: 07/15/2016 1:06:00 AM Benadryl [IVP] IVP 12.5 mg, administered: 07/15/2016 1:08:00 AM HALDOL [IVP] IVP 2 mg, administered: 07/15/2016 1:09:00 AM Rocephin [IVPB] IVPB bolus 0, then 2 gm 150 mL/hr, administered: 07/15/2016 2:55:00 AM The following Medications were prescribed to the patient: Septra DS: take 1 tablet orally every 12 hours for 3 days. No refill. Substitution is not permissible. -- Juan Francisco Khan MD
--- NOTE | 2016-07-18 00:17 | ED MAR SUMMARY ---
..... Medication Administration Record [facility] [address] [place] [address] Patient: CLAUDIA GREENFIELD Visit ID: [id number] 36y, F Weight: 51.7 kg Height/Length: 66 in BMI: 18.4 ALLERGIES: anything with triptin, Ambien, morphine, Vicodin Start 01:02 07/15/2016 Soniya Farias R.N., Stop 03:19 07/15/2016 Gurmeet France R.N. Medication Administered: IV NS (SALINE), Dose: IV Fluids over 1 hour(s), Rate: 1000 mL/hr, Dispensed: 1000 mL bag, Site: #1 left AC. Medication Ordered: IV NS : initial bolus 1000 mL (1000 mL/hr), then 250 mL/hr for 4h (NOW); Routine. Given 01:06 07/15/2016 Soniya Farias R.N. Medication Administered: PHENERGAN [IVP] (PROMETHAZINE HCL), Dose: 12.5 mg IVP over 1 minute(s), Site: #1 left AC. Medication Ordered: Phenergan IV 12.5 mg (NOW). Given 01:08 07/15/2016 Soniya Farias R.N. Medication Administered: BENADRYL [IVP] (DIPHENHYDRAMINE HCL), Dose: 12.5 mg IVP over 30 second(s), Site: #1 left AC. Medication Ordered: Benadryl IV 12.5 mg (NOW). Given 01:07/15/2016 Soniya Farias R.N. Medication Administered: HALDOL [IVP] (HALOPERIDOL LACTATE), Dose: 2 mg IVP over 30 second(s), Site: #1 left AC. Medication Ordered: Haldol IV 2 mg (NOW). Start 02:55 07/15/2016 Gurmeet France R.N., Stop 03:16 07/15/2016 Gurmeet France R.N. Medication Administered: ROCEPHIN [IVPB] (CEFTRIAXONE SODIUM), Dose: 2 gm IVPB over 20 minute(s), Rate: 150 mL/hr, Dispensed: 50 mL bag, Site: #1 left AC. Medication Ordered: Rocephin IV 2 gm/50mL (NOW).
== END 2016-07-15 03:32 | disposition home or self-care (01) ==
LOC: ED SRH 23:59
DX: N39.0 Urinary tract infection, site not specified (principal); G43.A0 Cyclical vomiting, in migraine, not intractable; Z88.5 Allergy status to narcotic agent; Z88.8 Allergy status to other drugs, medicaments and biological substances; Z79.899 Other long term (current) drug therapy
CPT/HCPCS: 90004; 90100; 90148; 90469; 92235; 92530; 92760; 92761; 92762; 92763; 92764; 92765; 92766; 92767; 95059